=== PATIENT | female | born 1960 | race Two or more races ===

== ENCOUNTER 2020-07-04 13:09 | Outpatient (CLI) | payer OTHER | END 2020-07-04 13:32 | disposition home or self-care (01) | LOC: NUCLEAR 13:09 | PROVIDERS: ATTEND Internal Medicine Endocrinology, Diabetes & Metabolism | DX: I11.0 Hypertensive heart disease with heart failure (principal); E55.9 Vitamin D deficiency, unspecified; E11.9 Type 2 diabetes mellitus without complications | CPT/HCPCS: 78708; A9539 ==